=== PATIENT | female | born 1970 | race Asian ===

== ENCOUNTER 2018-05-15 20:58 | Emergency (ER) | payer BC ==
[~2018-05-15] VITALS: Ht 165.1 cm; Wt 56.7 kg
[2018-05-15 21:12] VITALS: BP 98/67
[2018-05-15] MEDS ORDERED: cefTRIAXone SOD 1,000 MG VL IM ONE (22:00)
[2018-05-15 23:07] LABS: Urine Bacteria NONE SEEN /hpf (None Seen); Urine Blood 1+ /uL (Negative); Urine Mucus FEW (None Seen); Urine Specific Gravity 1.024 (1.001-1.035); Urine WBC 9 /hpf (0 - 5)
[2018-05-16] MEDS ORDERED: cefTRIAXone SOD 1,000 MG VL ONE (05:26)
== END 2018-05-16 04:30 | disposition home or self-care (01) ==
LOC: ER 21:00
DX: N39.0 Urinary tract infection, site not specified (principal)
CPT/HCPCS: 81001; 96372; J0696

== ENCOUNTER → 2018-05-31 | Outpatient (CLI) | payer BC ==
[2018-05-31 12:48] LABS: Basophils # (auto) 0 uL; Basophils % (auto) 0.5 % (0.0-2.0); Eosinophils # (auto) 0 uL; Eosinophils % (auto) 0.7 % (0.0-7.0); Hematocrit 42.1 % (36.0-46.0); Hemoglobin 13.8 g/dL (12.2-16.2); Lymphocytes # (auto) 2.2 uL; Lymphocytes % (auto) 34.9 % (10.0-50.0); Mean Corpuscular Hemoglobin 31.4 pg (28.0-32.0); Mean Corpuscular Hgb Conc. 32.8 g/dL (32.0-36.0); Mean Corpuscular Volume 95.5 fL (80.0-100.0); Monocytes # (auto) 0.4 uL; Monocytes % (auto) 5.8 % (0.0-12.0); Neutrophils # (auto) 3.6 uL; Neutrophils % (auto) 58.1 % (37.0-80.0); Nucleated Red Blood Cells % 0.1 %; Platelet Count (auto) 294 10^3/uL (140-450); Red Blood Cells 4.41 10^6/uL (4.0-5.20); Red Cell Distribution Width 14.4 % (11.8-14.3); Urine Bacteria NONE SEEN /hpf (None Seen); Urine Blood 2+ /uL (Negative); Urine Mucus FEW (None Seen); Urine Specific Gravity 1.008 (1.001-1.035); Urine WBC <1 /hpf (0 - 5); White Blood Cell 6.2 10^3/uL (4.4-10.8)
[2018-05-31 13:14] LABS: Albumin 3.6 g/dL (3.4-5.0); BUN/Creatinine Ratio 11.9; Calcium 7.8 mg/dL (8.5-10.1); Potassium 3.6 mmol/L (3.5-5.1)
[2018-05-31 13:16] LABS: Bilirubin, Total 0.5 mg/dL (0.2-1.0); Total Protein 7.5 g/dL (6.4-8.2)
== END | disposition home or self-care (01) ==
LOC: LAB 11:57
DX: Z00.00 Encounter for general adult medical examination without abnormal findings (principal)
CPT/HCPCS: 36415; 80053; 81001; 84443; 85025; 86703; 86803; 87086

== ENCOUNTER 2018-09-21 10:25 | Emergency (ER) | payer BC ==
[~2018-09-21] VITALS: Ht 165.1 cm; Wt 59.0 kg
[2018-09-21 10:33] VITALS: BP 122/62
== END 2018-09-21 11:22 | disposition home or self-care (01) ==
LOC: ER 10:25
DX: J20.9 Acute bronchitis, unspecified (principal); J02.9 Acute pharyngitis, unspecified
CPT/HCPCS: 71046; 81025

== ENCOUNTER 2019-01-28 10:32 | Emergency (ER) | payer BC, OTHER ==
[~2019-01-28] VITALS: Ht 157.5 cm; Wt 59.0 kg
[2019-01-28 11:41] VITALS: BP 120/69
[2019-01-30 08:43] LABS: Hepatitis B Surface Antibody Negative
[2019-01-30 09:02] LABS: Hepatitis B Surface Antigen Negative (Negative)
== END 2019-01-28 15:19 | disposition home or self-care (01) ==
LOC: ER 10:32
DX: S69.82XA Other specified injuries of left wrist, hand and finger(s), initial encounter (principal); W46.0XXA Contact with hypodermic needle, initial encounter; Y93.89 Activity, other specified; Y92.89 Other specified places as the place of occurrence of the external cause; Y99.8 Other external cause status
CPT/HCPCS: 36415; 86703; 86706; 86803; 87340

== ENCOUNTER 2019-05-06 07:01 | Emergency (ER) | payer OTHER ==
[~2019-05-06] VITALS: Ht 165.1 cm; Wt 63.5 kg
[2019-05-06 07:30] VITALS: BP 111/70
[2019-05-08 09:54] LABS: Hepatitis B Surface Antibody Negative
[2019-05-08 11:30] LABS: Hepatitis B Surface Antigen Negative (Negative)
== END 2019-05-06 13:50 | disposition home or self-care (01) ==
LOC: ER 09:09
DX: Z77.21 Contact with and (suspected) exposure to potentially hazardous body fluids (principal)
CPT/HCPCS: 36415; 86703; 86706; 86803; 87340